=== PATIENT | female | born 1965 | race Caucasian/White ===

== ENCOUNTER 2020-03-13 09:08 | Inpatient (IN) ==
[2020-03-13] MEDS ORDERED: ZOSYN VIAL 3.375 GRAMS 3.375 G in NS 100 ML IV + SPIKE MINIBAG* 100 ML IV SCH (09:54)
--- NOTE | 2020-03-13 11:01 | RAD ---
CHEST, 1 VIEWHistory: PNEUMONIA, COVID POSITIVEComparison: 03/12/2020Findings: Cardiac silhouette is normal in size. Bilateral perihilar and left basilar opacities persist and appear essentially unchanged since yesterday. No significant pleural effusion is identified. No pneumothorax.Impression: Persistent but stable left greater than right airspace disease.Electronically signed by: SERENA ORDAZ (Mar 13, 2020 11:00:12)
[2020-03-13 11:31] LABS: BASOPHILS % (AUTO) 0.1 % (0.2-1.0); HEMATOCRIT 43.9 % (36.0-47.0); HEMOGLOBIN 14.7 g/dL (12.0-16.0); LYMPHOCYTES # (AUTO) 0.6 X10^3/uL (1.3-2.9); LYMPHOCYTES % (AUTO) 5.3 % (21.0-51.0); MEAN CORPUSCULAR HEMOGLOBIN 29.6 pg (27.0-34.0); MEAN CORPUSCULAR HGB CONC 33.5 g/dL (33.0-35.0); MEAN CORPUSCULAR VOLUME 88.3 fL (80.0-100.0); MEAN PLATELET VOLUME 6.9 fL (7.4-11.0); MONOCYTES # (AUTO) 0.7 x10^3/uL (0.3-0.8); MONOCYTES % (AUTO) 5.6 % (0.0-13.0); NEUTROPHILS # (AUTO) 10.6 x10^3/uL (2.2-4.8); PLATELET COUNT 282 X10^3/uL (150.0-450.0); RED BLOOD COUNT 4.97 X10^6/uL (3.5-5.4); RED CELL DISTRIBUTION WIDTH 13.4 % (11.6-16.5); WHITE BLOOD COUNT 11.9 X10^3/uL (3.6-10.0)
[2020-03-13 11:41] LABS: ALANINE AMINOTRANSFERASE 22 Units/L (12-78); ALBUMIN 3.6 g/dL (3.4-5.0); ALKALINE PHOSPHATASE 81 Units/L (46-116); ASPARTATE AMINO TRANSFERASE 17 Units/L (15-37); BLOOD UREA NITROGEN 10 mg/dL (7-18); CALCIUM 9.6 mg/dL (8.5-10.1); CARBON DIOXIDE 26.8 mmol/L (21-32); CHLORIDE 99 mmol/L (98-107); COR NA(FOR HYPERGLY) 139 mmol/L (136-145); CREATININE 1.14 mg/dL (0.55-1.02); SODIUM 138 mmol/L (136-145); TOTAL PROTEIN 8.5 g/dL (6.4-8.2); eGFR NON BLACK RACES 53 (>60)
[2020-03-13 11:55] LABS: ABG BASE EXCESS 2.8 mmol/L (-2.0-2.0); ABG HCO3 25.7 mmol/L (22-26)
[2020-03-13 11:56] LABS: ABG ALLEN TEST POS
[2020-03-13] MEDS ORDERED: NS 500 ML IV 500 ML IV ONE (12:29)
[2020-03-13] MEDS: ZITHROMAX INJ 500 MG VIAL 500 MG in NS 250 ML IV 250 ML IV SCH (12:34)
[2020-03-13] MEDS: NS 500 ML IV 500 ML IV PRN (12:34)
[2020-03-13] MEDS ORDERED: ZOFRAN INJ 4 MG VIAL ONE (12:54)
[2020-03-13] MEDS: ZOFRAN INJ 4 MG VIAL IVP PRN (12:56)
[2020-03-13] MEDS: DUONEB 0.5 MG/3 MG (3 mL) NEB SCH ×2 (14:50→21:52)
[2020-03-13 15:38] VITALS: BMI 30.1
[2020-03-13] MEDS: ROCEPHIN 1 GRAM IV PREMIX 1 G/50 ML IV.SOLN. IV SCH (16:28)
[2020-03-13] MEDS: LOVENOX INJ 40 MG SYR SC SCH (16:28)
[2020-03-13] MEDS ORDERED: TYLENOL 325 MG TAB PO ONE (16:43)
[2020-03-13] MEDS: TYLENOL 325 MG TAB PO PRN (17:00)
[2020-03-13] MEDS ORDERED: POTASSIUM CHL 60 MEQ/NS 0.45% 500 ML IV PRN (18:19)
[2020-03-13] MEDS ORDERED: MICRO K EXTEN CAP 10 MEQ PO PRN (18:19)
[2020-03-13] MEDS ORDERED: POTASSIUM CHL 40 MEQ/NS 0.45% 500 ML IV PRN (18:19)
[2020-03-13] MEDS ORDERED: POTASSIUM CHLORIDE LIQ 20 MEQ UDC PO PRN (18:19)
[2020-03-13] MEDS ORDERED: KLOR-CON PO PRN (18:19)
[2020-03-13] MEDS ORDERED: K-RIDER 10 MEQ/NS 100 ML 10 MEQ/100 ML BAG IV PRN (18:19)
[2020-03-13] MEDS ORDERED: MAGNESIUM SULFATE 1 GRAM/100 mL PREMIX 1 GM/100 ML BAG IV PRN (18:19)
[2020-03-13] MEDS ORDERED: K-DUR TAB 20 MEQ PO PRN (18:19)
[2020-03-13] MEDS ORDERED: MICRO K EXTEN CAP 10 MEQ PO ONE (18:30)
[2020-03-13] MEDS ORDERED: COZAAR ONE (22:50)
[2020-03-13] MEDS ORDERED: EFFEXOR XR 37.5 MG CAP 24-HR PO ONE (22:51)
[2020-03-13] MEDS: COZAAR PO SCH (23:20)
[2020-03-13] MEDS: EFFEXOR XR 37.5 MG CAP 24-HR PO SCH (23:20)
[2020-03-13] MEDS ORDERED: NS 250 ML IV 250 ML IV ONE (23:57)
[2020-03-14] MEDS: TYLENOL 325 MG TAB PO PRN ×3 (02:27→18:23)
[2020-03-14 04:57] LABS: BASOPHILS % (AUTO) 0.2 % (0.2-1.0); HEMATOCRIT 37.5 % (36.0-47.0); HEMOGLOBIN 12.7 g/dL (12.0-16.0); LYMPHOCYTES # (AUTO) 0.8 X10^3/uL (1.3-2.9); LYMPHOCYTES % (AUTO) 10.8 % (21.0-51.0); MEAN CORPUSCULAR HGB CONC 33.8 g/dL (33.0-35.0); MEAN CORPUSCULAR VOLUME 88.8 fL (80.0-100.0); MEAN PLATELET VOLUME 7.5 fL (7.4-11.0); MONOCYTES # (AUTO) 0.3 x10^3/uL (0.3-0.8); MONOCYTES % (AUTO) 3.8 % (0.0-13.0); NEUTROPHILS # (AUTO) 6.4 x10^3/uL (2.2-4.8); NEUTROPHILS % (AUTO) 85.2 % (42.0-75.0); PLATELET COUNT 244 X10^3/uL (150.0-450.0); RED BLOOD COUNT 4.22 X10^6/uL (3.5-5.4); WHITE BLOOD COUNT 7.5 X10^3/uL (3.6-10.0)
[2020-03-14 05:04] LABS: ALANINE AMINOTRANSFERASE 18 Units/L (12-78); ALBUMIN 3.1 g/dL (3.4-5.0); ALKALINE PHOSPHATASE 67 Units/L (46-116); ASPARTATE AMINO TRANSFERASE 16 Units/L (15-37); BLOOD UREA NITROGEN 10 mg/dL (7-18); CALCIUM 8.4 mg/dL (8.5-10.1); CARBON DIOXIDE 27.8 mmol/L (21-32); CHLORIDE 100 mmol/L (98-107); COR CA(FOR HYPOALB) 9.1 mg/dL (8.5-10.1); CREATININE 0.95 mg/dL (0.55-1.02); SODIUM 135 mmol/L (136-145); TOTAL PROTEIN 7.3 g/dL (6.4-8.2); eGFR NON BLACK RACES > 60 (>60)
[2020-03-14] MEDS: DUONEB 0.5 MG/3 MG (3 mL) NEB SCH ×3 (06:21→21:57)
--- NOTE | 2020-03-14 08:41 | DR.H&P ---
H&P - History & Physical for Day of: H&P Date: 03/14/20 - Chief Complaint Chief Complaint: SOB, CCC, FEVER COVID + - History of Present Illness History of Present Illness: PT IS [id number] DIRECT ADMIT FROM DR HAMMER OFFICE WITH COVID 19+ PNEUMONIA AND HYPOXIA. PT HAD BEEN ON PO LEVAQUIN, ZITHROMAX, PLAQUENIL, DUO NEBS, PO STEROIDS WITHOUT IMPROVEMENT. PT OUTPT CXR WITH BILATERAL PNEUMONIA AND HYPOXIA. PT DENIES ANY HISTORY OF CAD OR DM. PT HAS PMH OF HTN. PT ADMITTED FOR TREATMENT OF ACUTE ILLNESS. - Past Medical History Past Medical History: Hypertension - Past Surgical History Surgical History: Cholecystectomy - Family History Family Medical History: Cancer - Social History Does patient currently use any type of tobacco product: No Have you used tobacco products in the last 12 months: No Type of Tobacco Use: None Alcohol Use: None Drug Use: None - Medications Home Medications: Penicillins Allergy (Verified 03/13/20 11:27) Sulfa (Sulfonamide Antibiotics) [SULFA] Allergy (Verified 03/13/20 11:27) CONTINUE taking the following medications albuterol sulfate 2.5 mg INHALATION QID PRN 03/13/20 [History] azithromycin 500 mg PO DAILY 03/13/20 [History] codeine-guaifenesin [Virtussin AC] 10 ml PO Q4H PRN 03/13/20 [History] hydroxychloroquine 200 mg PO BID 03/13/20 [History] levofloxacin 500 mg PO DAILY 03/13/20 [History] losartan 50 mg PO DAILY 03/13/20 [History] methylprednisolone 4 mg PO DAILY 03/13/20 [History] thyroid (pork) [[place] Thyroid] 90 mg PO DAILY 03/13/20 [History] venlafaxine 37.5 mg PO DAILY 03/13/20 [History] - Review of Systems Constitutional: Fever, Weakness, Malaise Eyes: No Symptoms Reported ENT: No Symptoms Reported Respiratory: Cough, Shortness of Breath, SOB with Excertion, Pleuritic Pain, Wheezing Cardiovascular: Palpitations Gastrointestinal: Nausea, Vomiting, Abdominal Pain Genitourinary: No Symptoms Reported Musculoskeletal: No Symptoms Reported Skin: No Symptoms Reported Neurological: No Symptoms Reported - Physical Exam Vital Signs: Temperature 99.4 F Pulse Rate [Left Brachial] 104 Pulse Rate 89 Respiratory Rate 22 Blood Pressure [Left Arm] 124/68 O2 Sat by Pulse Oximetry 94 Oriented: Normal Eyes: Normal Ear: Normal Nose: Normal Throat: Normal Respiratory: Diminished Throughout Cardiovascular: Normal : Normal Auscultation: Bowel Sounds: Normal Palpation: Normal Tenderness: Normal Skin: Decreased Turgur Musculoskeletal: Normal Psychiatric: Anxiety Affect: Anxious Speech Pattern: Clear, Appropriate - Assessment/Plan (1) Pneumonia due to COVID-19 virus Status: Acute Plan: PT ADMIT TO ICU ISOLATION, SUPPLEMENTAL O2. CXR, BC AND SPUTUM ON ADMISSION. ABG ON ROOM AIR, IV HYDRATION, REMDESIVIR, ZITHROMAX, ROCEPHIN. CONVALESCENT PLASMA, IV SOLU MEDROL. PT/RT (2) Hypertension Status: Acute - Allergies Allergies/Adverse Reactions: Allergies Allergy/AdvReac Type Severity Reaction Status Date / Time Penicillins Allergy Verified 03/13/20 11:27 Sulfa (Sulfonamide Allergy Verified 03/13/20 11:27 Antibiotics) [SULFA]
[2020-03-14] MEDS ORDERED: REMDESIVIR (INVESTIGATIONAL DRUG GS-5734) 200 MG in NS 250 ML IV 250 ML IV NR (09:00)
[2020-03-14] MEDS ORDERED: COZAAR PO SCH (09:00)
[2020-03-14] MEDS ORDERED: EFFEXOR XR 37.5 MG CAP 24-HR PO SCH (09:00)
[2020-03-14] MEDS: ASCORBIC ACID INJ MULTI-DOSE VIAL 1,500 MG in NS 100 ML IV 100 ML IV SCH ×4 (09:43→22:00)
[2020-03-14] MEDS: LOVENOX INJ 40 MG SYR SC SCH (09:44)
[2020-03-14] MEDS: PROTONIX TAB 40 MG PO SCH (09:45)
[2020-03-14] MEDS: ROCEPHIN 1 GRAM IV PREMIX 1 G/50 ML IV.SOLN. IV SCH (09:46)
[2020-03-14] MEDS: ZITHROMAX INJ 500 MG VIAL 500 MG in NS 250 ML IV 250 ML IV SCH (09:47)
[2020-03-14] MEDS: ZOFRAN INJ 4 MG VIAL IVP PRN (13:04)
[2020-03-14] MEDS ORDERED: ARMOUR THYROID 90 MG PO SCH (16:30)
[2020-03-14] MEDS ORDERED: ULTRAM PO PRN (18:24)
[2020-03-14] MEDS: EFFEXOR XR 37.5 MG CAP 24-HR PO SCH (21:00)
[2020-03-14] MEDS: COZAAR PO SCH (21:00)
[2020-03-15] MEDS: TYLENOL 325 MG TAB PO PRN (00:35)
[2020-03-15] MEDS: ASCORBIC ACID INJ MULTI-DOSE VIAL 1,500 MG in NS 100 ML IV 100 ML IV SCH ×4 (04:00→21:29)
[2020-03-15 05:10] LABS: BASOPHILS % (AUTO) 0.2 % (0.2-1.0); HEMATOCRIT 37.6 % (36.0-47.0); HEMOGLOBIN 12.5 g/dL (12.0-16.0); LYMPHOCYTES # (AUTO) 0.9 X10^3/uL (1.3-2.9); LYMPHOCYTES % (AUTO) 13.2 % (21.0-51.0); MEAN CORPUSCULAR HEMOGLOBIN 29.7 pg (27.0-34.0); MEAN CORPUSCULAR HGB CONC 33.3 g/dL (33.0-35.0); MEAN PLATELET VOLUME 7.3 fL (7.4-11.0); MONOCYTES # (AUTO) 0.3 x10^3/uL (0.3-0.8); MONOCYTES % (AUTO) 4.8 % (0.0-13.0); NEUTROPHILS # (AUTO) 5.7 x10^3/uL (2.2-4.8); NEUTROPHILS % (AUTO) 81.8 % (42.0-75.0); PLATELET COUNT 229 X10^3/uL (150.0-450.0); RED BLOOD COUNT 4.22 X10^6/uL (3.5-5.4); RED CELL DISTRIBUTION WIDTH 13.2 % (11.6-16.5); WHITE BLOOD COUNT 6.9 X10^3/uL (3.6-10.0)
[2020-03-15 05:18] LABS: ALANINE AMINOTRANSFERASE 20 Units/L (12-78); ALBUMIN 2.8 g/dL (3.4-5.0); ALKALINE PHOSPHATASE 62 Units/L (46-116); ASPARTATE AMINO TRANSFERASE 21 Units/L (15-37); BLOOD UREA NITROGEN 8 mg/dL (7-18); CALCIUM 8.4 mg/dL (8.5-10.1); CARBON DIOXIDE 30.1 mmol/L (21-32); CHLORIDE 102 mmol/L (98-107); COR CA(FOR HYPOALB) 9.4 mg/dL (8.5-10.1); CREATININE 0.78 mg/dL (0.55-1.02); SODIUM 139 mmol/L (136-145); TOTAL PROTEIN 7.1 g/dL (6.4-8.2); eGFR NON BLACK RACES > 60 (>60)
[2020-03-15] MEDS: DUONEB 0.5 MG/3 MG (3 mL) NEB SCH ×3 (06:09→21:55)
[2020-03-15] MEDS: ARMOUR THYROID 90 MG PO SCH (08:30)
[2020-03-15] MEDS: ZITHROMAX INJ 500 MG VIAL 500 MG in NS 250 ML IV 250 ML IV SCH (08:30)
[2020-03-15] MEDS: REMDESIVIR (INVESTIGATIONAL DRUG GS-5734) 100 MG in NS 250 ML IV 250 ML IV SCH (08:47)
[2020-03-15] MEDS: LOVENOX INJ 40 MG SYR SC SCH (08:52)
[2020-03-15] MEDS: PROTONIX TAB 40 MG PO SCH (08:53)
[2020-03-15] MEDS: ROCEPHIN 1 GRAM IV PREMIX 1 G/50 ML IV.SOLN. IV SCH (09:23)
--- NOTE | 2020-03-15 12:40 | RAD ---
HISTORYPneumoniaSTUDYAP [id number]/24/2020FINDINGSStable heart size. Interval increase in bilateral infiltrates especially in the right lung when compared to prior. No focal lobar consolidation, complicating pneumothorax or large pleural effusion is evident.IMPRESSIONProgression of pulmonary infiltrates, right greater than left, consistent with multifocal pneumonia.Electronically signed by: OWEN HOFFMAN (Mar 15, 2020 12:40:04)
[2020-03-15] MEDS: ZOFRAN INJ 4 MG VIAL IVP PRN (14:10)
[2020-03-15] MEDS: COZAAR PO SCH (21:29)
[2020-03-15] MEDS: EFFEXOR XR 37.5 MG CAP 24-HR PO SCH (21:30)
[2020-03-16] MEDS: ASCORBIC ACID INJ MULTI-DOSE VIAL 1,500 MG in NS 100 ML IV 100 ML IV SCH ×4 (03:50→21:15)
[2020-03-16 05:40] LABS: BASOPHILS % (AUTO) 0.4 % (0.2-1.0); EOSINOPHILS % (AUTO) 0.4 % (0.9-2.9); HEMATOCRIT 38.3 % (36.0-47.0); HEMOGLOBIN 12.8 g/dL (12.0-16.0); LYMPHOCYTES % (AUTO) 19.3 % (21.0-51.0); MEAN CORPUSCULAR HEMOGLOBIN 29.7 pg (27.0-34.0); MEAN CORPUSCULAR HGB CONC 33.5 g/dL (33.0-35.0); MEAN CORPUSCULAR VOLUME 88.4 fL (80.0-100.0); MEAN PLATELET VOLUME 6.8 fL (7.4-11.0); MONOCYTES # (AUTO) 0.5 x10^3/uL (0.3-0.8); MONOCYTES % (AUTO) 9.3 % (0.0-13.0); NEUTROPHILS # (AUTO) 3.8 x10^3/uL (2.2-4.8); NEUTROPHILS % (AUTO) 70.6 % (42.0-75.0); PLATELET COUNT 284 X10^3/uL (150.0-450.0); RED BLOOD COUNT 4.33 X10^6/uL (3.5-5.4); RED CELL DISTRIBUTION WIDTH 13.5 % (11.6-16.5); WHITE BLOOD COUNT 5.4 X10^3/uL (3.6-10.0)
[2020-03-16] MEDS: DUONEB 0.5 MG/3 MG (3 mL) NEB SCH ×4 (05:55→21:56)
[2020-03-16 06:05] LABS: ALANINE AMINOTRANSFERASE 19 Units/L (12-78); ALBUMIN 2.7 g/dL (3.4-5.0); ALKALINE PHOSPHATASE 60 Units/L (46-116); ASPARTATE AMINO TRANSFERASE 16 Units/L (15-37); BLOOD UREA NITROGEN 8 mg/dL (7-18); CALCIUM 8.6 mg/dL (8.5-10.1); CARBON DIOXIDE 30.5 mmol/L (21-32); CHLORIDE 102 mmol/L (98-107); COR CA(FOR HYPOALB) 9.6 mg/dL (8.5-10.1); CREATININE 0.63 mg/dL (0.55-1.02); SODIUM 140 mmol/L (136-145); eGFR NON BLACK RACES > 60 (>60)
[2020-03-16] MEDS: ROCEPHIN 1 GRAM IV PREMIX 1 G/50 ML IV.SOLN. IV SCH (09:55)
[2020-03-16] MEDS: ARMOUR THYROID 90 MG PO SCH (09:55)
[2020-03-16] MEDS: ZITHROMAX INJ 500 MG VIAL 500 MG in NS 250 ML IV 250 ML IV SCH (09:55)
[2020-03-16] MEDS: REMDESIVIR (INVESTIGATIONAL DRUG GS-5734) 100 MG in NS 250 ML IV 250 ML IV SCH (09:55)
[2020-03-16] MEDS: LOVENOX INJ 40 MG SYR SC SCH (09:55)
[2020-03-16] MEDS: PROTONIX TAB 40 MG PO SCH (09:55)
[2020-03-16 11:44] LABS: ABG BASE EXCESS 5.1 mmol/L (-2.0-2.0); ABG HCO3 29.9 mmol/L (22-26)
[2020-03-16 11:45] LABS: ABG ALLEN TEST POS
[2020-03-16] MEDS: COZAAR PO SCH (21:16)
[2020-03-16] MEDS: EFFEXOR XR 37.5 MG CAP 24-HR PO SCH (21:16)
[2020-03-17] MEDS: ASCORBIC ACID INJ MULTI-DOSE VIAL 1,500 MG in NS 100 ML IV 100 ML IV SCH ×4 (03:00→20:31)
--- NOTE | 2020-03-17 05:37 | RAD ---
HISTORYPNEUMONIASTUDYCHEST, 1 [id number]/26/2020FINDINGSThe trachea is midline. The cardiac silhouette is stable. Patchy bilateral pulmonary opacities/infiltrates, more pronounced compared to prior exam, particularly involving the right hemithorax. Question trace right pleural effusion.. The bony thorax is stable.IMPRESSIONInterval worsening pulmonary opacities/infiltrates, particularly involving the right sebas thorax.Electronically signed by: Nesha Avila (Mar 17, 2020 05:37:23)
[2020-03-17 05:52] LABS: BASOPHILS % (AUTO) 0.5 % (0.2-1.0); EOSINOPHILS # (AUTO) 0.1 x10^3/uL (0.0-0.2); EOSINOPHILS % (AUTO) 1.3 % (0.9-2.9); HEMATOCRIT 37.5 % (36.0-47.0); HEMOGLOBIN 12.6 g/dL (12.0-16.0); LYMPHOCYTES # (AUTO) 1.2 X10^3/uL (1.3-2.9); LYMPHOCYTES % (AUTO) 19.2 % (21.0-51.0); MEAN CORPUSCULAR HEMOGLOBIN 30.1 pg (27.0-34.0); MEAN CORPUSCULAR HGB CONC 33.6 g/dL (33.0-35.0); MEAN CORPUSCULAR VOLUME 89.7 fL (80.0-100.0); MEAN PLATELET VOLUME 7.2 fL (7.4-11.0); MONOCYTES # (AUTO) 0.7 x10^3/uL (0.3-0.8); MONOCYTES % (AUTO) 11.2 % (0.0-13.0); NEUTROPHILS # (AUTO) 4.1 x10^3/uL (2.2-4.8); NEUTROPHILS % (AUTO) 67.8 % (42.0-75.0); PLATELET COUNT 333 X10^3/uL (150.0-450.0); RED BLOOD COUNT 4.18 X10^6/uL (3.5-5.4); RED CELL DISTRIBUTION WIDTH 13.3 % (11.6-16.5)
[2020-03-17 06:03] LABS: ALANINE AMINOTRANSFERASE 30 Units/L (12-78); ALBUMIN 2.7 g/dL (3.4-5.0); ALKALINE PHOSPHATASE 61 Units/L (46-116); ASPARTATE AMINO TRANSFERASE 35 Units/L (15-37); BLOOD UREA NITROGEN 9 mg/dL (7-18); CALCIUM 8.6 mg/dL (8.5-10.1); CARBON DIOXIDE 30.6 mmol/L (21-32); CHLORIDE 102 mmol/L (98-107); COR CA(FOR HYPOALB) 9.6 mg/dL (8.5-10.1); COR NA(FOR HYPERGLY) 141 mmol/L (136-145); SODIUM 140 mmol/L (136-145); TOTAL PROTEIN 6.9 g/dL (6.4-8.2); eGFR NON BLACK RACES > 60 (>60)
[2020-03-17] MEDS: DUONEB 0.5 MG/3 MG (3 mL) NEB SCH ×3 (06:37→21:00)
[2020-03-17 08:51] LABS: ABG ALLEN TEST POS; ABG BASE EXCESS 4.1 mmol/L (-2.0-2.0); ABG HCO3 29.2 mmol/L (22-26)
[2020-03-17] MEDS: LOVENOX INJ 40 MG SYR SC SCH (10:30)
[2020-03-17] MEDS: PROTONIX TAB 40 MG PO SCH (10:30)
[2020-03-17] MEDS: REMDESIVIR (INVESTIGATIONAL DRUG GS-5734) 100 MG in NS 250 ML IV 250 ML IV SCH (10:30)
[2020-03-17] MEDS: ARMOUR THYROID 90 MG PO SCH (10:30)
[2020-03-17] MEDS: ROBITUSSIN DM PO SCH ×3 (10:53→20:31)
[2020-03-17] MEDS: ROCEPHIN 1 GRAM IV PREMIX 1 G/50 ML IV.SOLN. IV SCH (11:00)
[2020-03-17] MEDS: ZITHROMAX INJ 500 MG VIAL 500 MG in NS 250 ML IV 250 ML IV SCH (12:00)
--- NOTE | 2020-03-17 12:14 | CT ---
HISTORYShortness of breath, COVID-19STUDYCTA chest with contrast for pulmonary embolusTechnique: Axial post-contrast images with coronal, sagittal, and 3 dimensional maximum intensity projection images obtained and evaluated. Dose reduction procedures were used with mA/kv adjusted for body size.COMPARISONNoneFINDINGSThere is no evidence for acute pulmonary thromboembolic disease. Examination of the mediastinum demonstrated no evidence for mediastinal masses, enlarged mediastinal or enlarged hilar adenopathy or significant aortic abnormality. The heart is enlarged. No significant pleural effusions are identified. No chest wall or axillary abnormality is identified. Those portions of the upper abdominal organs visualized were within normal limits. Examination of the lung fuller demonstrated bilateral central and peripheral ground-glass infiltrates with associated multiple areas of subsegmental atelectasis affecting the right more prominently than the left and with a lower lobe predominance. Findings are consistent with multifocal pneumonia which could be bacterial, viral, or atypical viral in origin. COVID lung involvement not excluded radiographically and should be excluded clinically. No definite nodules, masses, peribronchial thickening, or bronchiectasis identified.IMPRESSIONNo evidence for acute pulmonary thromboembolic diseaseBilateral multifocal ground-glass infiltrates more prominent on the right than the left and more prevalent in the lower than the upper lobes most consistent with multifocal pneumonia. COVID-19 not excluded radiographically.Multiple bilateral focal areas of subsegmental atelectasisElectronically signed by: SHELDON BARAKAT (Mar 17, 2020 12:14:22)
[2020-03-17] MEDS: EFFEXOR XR 37.5 MG CAP 24-HR PO SCH (20:31)
[2020-03-17] MEDS: COZAAR PO SCH (20:31)
[2020-03-18] MEDS: ASCORBIC ACID INJ MULTI-DOSE VIAL 1,500 MG in NS 100 ML IV 100 ML IV SCH ×4 (02:32→20:55)
[2020-03-18 05:39] LABS: BASOPHILS % (AUTO) 0.6 % (0.2-1.0); EOSINOPHILS # (AUTO) 0.1 x10^3/uL (0.0-0.2); EOSINOPHILS % (AUTO) 2.2 % (0.9-2.9); HEMATOCRIT 36.4 % (36.0-47.0); HEMOGLOBIN 12.3 g/dL (12.0-16.0); LYMPHOCYTES # (AUTO) 1.3 X10^3/uL (1.3-2.9); LYMPHOCYTES % (AUTO) 22.7 % (21.0-51.0); MEAN CORPUSCULAR HEMOGLOBIN 29.9 pg (27.0-34.0); MEAN CORPUSCULAR HGB CONC 33.9 g/dL (33.0-35.0); MEAN CORPUSCULAR VOLUME 88.3 fL (80.0-100.0); MEAN PLATELET VOLUME 6.7 fL (7.4-11.0); MONOCYTES # (AUTO) 0.7 x10^3/uL (0.3-0.8); NEUTROPHILS # (AUTO) 3.4 x10^3/uL (2.2-4.8); NEUTROPHILS % (AUTO) 61.5 % (42.0-75.0); PLATELET COUNT 377 X10^3/uL (150.0-450.0); RED BLOOD COUNT 4.13 X10^6/uL (3.5-5.4); RED CELL DISTRIBUTION WIDTH 12.8 % (11.6-16.5); WHITE BLOOD COUNT 5.6 X10^3/uL (3.6-10.0)
[2020-03-18 05:55] LABS: ALANINE AMINOTRANSFERASE 50 Units/L (12-78); ALBUMIN 2.7 g/dL (3.4-5.0); ALKALINE PHOSPHATASE 59 Units/L (46-116); ASPARTATE AMINO TRANSFERASE 35 Units/L (15-37); BLOOD UREA NITROGEN 7 mg/dL (7-18); CALCIUM 8.7 mg/dL (8.5-10.1); CARBON DIOXIDE 30.2 mmol/L (21-32); CHLORIDE 104 mmol/L (98-107); COR CA(FOR HYPOALB) 9.7 mg/dL (8.5-10.1); COR NA(FOR HYPERGLY) 141 mmol/L (136-145); CREATININE 0.69 mg/dL (0.55-1.02); SODIUM 141 mmol/L (136-145); TOTAL PROTEIN 6.6 g/dL (6.4-8.2); eGFR NON BLACK RACES > 60 (>60)
[2020-03-18] MEDS: DUONEB 0.5 MG/3 MG (3 mL) NEB SCH ×3 (06:20→20:59)
[2020-03-18] MEDS: ARMOUR THYROID 90 MG PO SCH (08:40)
[2020-03-18] MEDS: LOVENOX INJ 40 MG SYR SC SCH (08:41)
[2020-03-18] MEDS: REMDESIVIR (INVESTIGATIONAL DRUG GS-5734) 100 MG in NS 250 ML IV 250 ML IV SCH (08:42)
[2020-03-18] MEDS: ROBITUSSIN DM PO SCH ×4 (08:42→20:56)
[2020-03-18] MEDS: PROTONIX TAB 40 MG PO SCH (08:42)
[2020-03-18] MEDS: ROCEPHIN 1 GRAM IV PREMIX 1 G/50 ML IV.SOLN. IV SCH (09:09)
[2020-03-18] MEDS: ZITHROMAX INJ 500 MG VIAL 500 MG in NS 250 ML IV 250 ML IV SCH (09:33)
--- NOTE | 2020-03-18 11:16 | RAD ---
HISTORYSOB COVID +STUDYCHEST, 1 [id number]/28/2020FINDINGSThe heart is less prominent. The pulmonary vessels are less prominent. There are some hazy perihilar and bibasilar opacities which have decreased. No effusion is seen.IMPRESSIONSlight decrease in the heart size with resolving pulmonary congestion.Slowly resolving perihilar and bibasilar opacities.Electronically signed by: DEBRA ALVES (Mar 18, 2020 11:16:05)
[2020-03-18 11:37] LABS: ABG BASE EXCESS 6.1 mmol/L (-2.0-2.0)
[2020-03-18 11:38] LABS: ABG HCO3 30.6 mmol/L (22-26)
[2020-03-18] MEDS: DIFLUCAN 200 MG IV PREMIX* 200 MG/100 ML BAG IV SCH (13:28)
[2020-03-18] MEDS ORDERED: NS 500 ML IV 500 ML IV ONE (15:11)
[2020-03-18] MEDS: NS 500 ML IV 500 ML IV PRN (16:17)
[2020-03-18] MEDS: COZAAR PO SCH (20:55)
[2020-03-18] MEDS: EFFEXOR XR 37.5 MG CAP 24-HR PO SCH (20:56)
[2020-03-19] MEDS: ASCORBIC ACID INJ MULTI-DOSE VIAL 1,500 MG in NS 100 ML IV 100 ML IV SCH ×3 (02:29→14:54)
[2020-03-19] MEDS: DUONEB 0.5 MG/3 MG (3 mL) NEB SCH ×2 (05:05→13:35)
[2020-03-19 06:00] LABS: BASOPHILS # (AUTO) 0.1 X10^3/uL (0.0-0.1); BASOPHILS % (AUTO) 0.9 % (0.2-1.0); EOSINOPHILS # (AUTO) 0.1 x10^3/uL (0.0-0.2); EOSINOPHILS % (AUTO) 2.4 % (0.9-2.9); HEMATOCRIT 36.9 % (36.0-47.0); HEMOGLOBIN 12.6 g/dL (12.0-16.0); LYMPHOCYTES # (AUTO) 1.8 X10^3/uL (1.3-2.9); LYMPHOCYTES % (AUTO) 31.6 % (21.0-51.0); MEAN CORPUSCULAR HEMOGLOBIN 29.9 pg (27.0-34.0); MEAN CORPUSCULAR HGB CONC 34.1 g/dL (33.0-35.0); MEAN CORPUSCULAR VOLUME 87.8 fL (80.0-100.0); MEAN PLATELET VOLUME 6.3 fL (7.4-11.0); MONOCYTES # (AUTO) 0.7 x10^3/uL (0.3-0.8); NEUTROPHILS % (AUTO) 52.1 % (42.0-75.0); PLATELET COUNT 420 X10^3/uL (150.0-450.0); RED CELL DISTRIBUTION WIDTH 13.2 % (11.6-16.5); WHITE BLOOD COUNT 5.8 X10^3/uL (3.6-10.0)
[2020-03-19 06:05] LABS: ALANINE AMINOTRANSFERASE 52 Units/L (12-78); ALBUMIN 3.1 g/dL (3.4-5.0); ALKALINE PHOSPHATASE 66 Units/L (46-116); ASPARTATE AMINO TRANSFERASE 28 Units/L (15-37); BLOOD UREA NITROGEN 8 mg/dL (7-18); CALCIUM 9.2 mg/dL (8.5-10.1); CARBON DIOXIDE 31.2 mmol/L (21-32); CHLORIDE 103 mmol/L (98-107); COR CA(FOR HYPOALB) 9.9 mg/dL (8.5-10.1); COR NA(FOR HYPERGLY) 143 mmol/L (136-145); CREATININE 0.63 mg/dL (0.55-1.02); SODIUM 142 mmol/L (136-145); TOTAL PROTEIN 7.3 g/dL (6.4-8.2); eGFR NON BLACK RACES > 60 (>60)
[2020-03-19] MEDS: PROTONIX TAB 40 MG PO SCH (09:30)
[2020-03-19] MEDS: LOVENOX INJ 40 MG SYR SC SCH (09:30)
[2020-03-19] MEDS: ROBITUSSIN DM PO SCH ×3 (09:30→12:19)
[2020-03-19] MEDS ORDERED: ZITHROMAX TAB 250 MG PO ONE ×2 (10:09→10:44)
[2020-03-19] MEDS: ARMOUR THYROID 90 MG PO SCH (10:12)
[2020-03-19] MEDS: DIFLUCAN 200 MG IV PREMIX* 200 MG/100 ML BAG IV SCH (10:13)
[2020-03-19] MEDS: ROCEPHIN 1 GRAM IV PREMIX 1 G/50 ML IV.SOLN. IV SCH (10:14)
[2020-03-19] MEDS: ZITHROMAX INJ 500 MG VIAL 500 MG in NS 250 ML IV 250 ML IV SCH (10:15)
[2020-03-19 16:41] VITALS: BP 137/78
== END 2020-03-19 16:40 | disposition home or self-care (01) | DRG 177 ==
LOC: MED/SURG 10:19 → ICU 03-14 12:11
PROVIDERS: ADMIT Internal Medicine; ATTEND Internal Medicine
DX: J12.89 Other viral pneumonia; E03.9 Hypothyroidism, unspecified; R09.02 Hypoxemia; I10 Essential (primary) hypertension; U07.1 COVID-19; R07.9 Chest pain, unspecified